=== PATIENT | male | born 1940 | race Caucasian/White ===

== ENCOUNTER 2017-10-12 23:52 | Inpatient (IN) | payer MEDICARE ==
[2017-10-13 00:46] VITALS: BP 128/75
[2017-10-13] MEDS ORDERED: Magnesium Hydroxide (MOM) 30 mL UDC PO PRN (01:11)
[2017-10-13] MEDS ORDERED: Maalox 30 mL Cup PO PRN (01:11)
[2017-10-13] MEDS ORDERED: Haloperidol Lactate 5 mg/mL 1mL Vial IM PRN (01:22)
--- NOTE | 2017-10-13 07:43 | Diagnostic Imaging Report ---
Portable chest x-ray HISTORY: Shortness of breath The heart is enlarged. Surgical suture material noted over the mid chest. Parenchymal density seen in the left perihilar region. Pneumonia cannot be excluded. Clinical correlation is needed. IMPRESSION: 1. Left perihilar density. Pneumonia cannot be excluded. Clinical correlation is needed 2. Cardiomegaly 3. Surgical changes
[2017-10-13 09:23] LABS: % BASOPHILS 1.1 % (0.0-2.0); % LYMPHOCYTES 8.6 % (20.0-50.0); % MONOCYTES 8.4 % (2.0-10.0); % NEUTROPHILS 79.9 % (40.0-80.0); BASOPHILE ABSOLUTE 0.1 Th/cumm (0-0.2); EOSINOPHILE ABSOLUTE 0.1 Th/cmm (0.1-0.4); HEMATOCRIT 46.4 % (41.0-60); HEMOGLOBIN 15.3 gm/dL (12-16); LYMPHOCYTE ABSOLUTE 0.6 Th/cmm (1.5-3.0); MEAN CELL VOLUME 90.9 fl (80-99); MEAN CORPUSCULAR HGB CONC 33.1 pg (28.0-36.0); MONOCYTE ABSOLUTE 0.6 Th/cmm (0.3-1.0); NEUTROPHILE ABSOLUTE 5.9 Th/cmm (1.8-8.0); PLATELET COUNT 235 Th/cmm (150-400); RED BLOOD COUNT 5.11 Mil/cmm (3.80-5.80); RED CELL DISTRIBUTION WIDTH 13.8 % (11.5-20.0); WHITE BLOOD COUNT 7.3 Th/cmm (4.8-10.8)
[2017-10-13] MEDS: Multivitamin Tab PO SCH (09:24)
[2017-10-13] MEDS: Aspirin 81mg Chewable Tab PO SCH (09:24)
[2017-10-13 09:27] LABS: ALB/GLOB RATIO 1.4 (1.0-1.8); ALBUMIN 3.3 gm/dL (4.2-5.5); ALKALINE PHOSPHATASE 55 U/L (34-104); ANION GAP 9.4 (7.0-16.0); BILIRUBIN,TOTAL 0.8 mg/dL (0.3-1.0); BUN - UREA NITROGEN 15 mg/dL (7-25); CALCIUM SERUM 8.8 mg/dL (8.6-10.3); CARBON DIOXIDE 25.9 mEq/L (21.0-31.0); CHLORIDE 107 mEq/L (98-107); CHOLESTEROL 160 mg/dL (<200); CREATININE - SERUM 0.9 mg/dL (0.7-1.3); GLUCOSE 100 mg/dL (70-105); HDL -HIGH DENSITY LIPOPROTEIN 39 mg/dL (23-92); POTASSIUM SERUM 4.3 mEq/L (3.5-5.1); SGOT 34 U/L (13-39); SGPT/ALT 14 U/L (7-52); SODIUM SERUM 138 mEq/L (136-145); TOTAL PROTEIN,SERUM 5.7 gm/dL (6.0-8.3); TRIGLYCERIDES 78 mg/dL (<150)
[2017-10-13 10:06] LABS: VALPROIC ACID 18.3 ug/mL (50.0-100.0)
[2017-10-13 18:30] LABS: A1C % 6.2 % (4.0-6.0)
--- NOTE | 2017-10-13 23:36 | History & Physical ---
ADMIT DATE: 10/13/2017 REASON FOR ADMISSION: Psychiatric disorders. ADMITTING PHYSICIAN: Dr. Lantigua. REASON FOR CONSULTATION: Medical management. HISTORY OF PRESENT ILLNESS: This is a 76-year-old male with underlying history of BPH with obstructive uropathy, requiring chronic indwelling Hogue catheter, chronic AFib, dementia, and mental disorder; was admitted for Geropsych Unit for underlying psychiatric illness by Dr. Lantigua. Dr. Lantigua requested medical H and P on this patient. During my evaluation, the patient was awake, communicated, denies any complaints. PAST MEDICAL HISTORY: BPH, chronic AFib, and dementia. PAST SURGICAL HISTORY: No significant past surgical history. SOCIAL HISTORY: prison resident. No reports alcohol, tobacco, or street drug use. CURRENT MEDICATIONS: On Xarelto, Flomax, started on Ambien, Seroquel, Ativan, Proscar, Depakote, aspirin, Maalox, and Tylenol. REVIEW OF SYSTEMS: As per HPI, 12-point system is negative. PHYSICAL EXAMINATION: VITAL SIGNS: Temperature 98.8, pulse 108, respirations 20, blood pressure ____, and 97% on room air. Pain 0/10. GENERAL APPEARANCE: The patient does not seem in distress. CARDIOVASCULAR: S1 and S2 normal. LUNGS: Clear to auscultation bilaterally. ABDOMEN: Soft. NEUROLOGIC: The patient is awake, follows commands, moves all extremities. Gross nonfocal exam EXTREMITIES: No edema noted. AVAILABLE LABORATORY DATA: ____. ASSESSMENT: 1. Chronic atrial fibrillation, stable. 2. Obstructive uropathy. 3. Benign prostatic hypertrophy. 4. Dementia. 5. ____. PLAN: Continue the patient's psych evaluation and management per psychiatric. Continue Xarelto. Continue Proscar. Continue Flomax. Fall precautions. Hogue care will be given. Psych evaluation and management per psychiatrist. The patient is medically stable. Thank you Dr. Lantigua for allowing me to participate in the care of this patient. JOB# [id number]
--- NOTE | 2017-10-14 02:21 | Psychiatric Evaluation ---
DATE OF SERVICE: INITIAL EVALUATION AND MENTAL STATUS EXAM THE PATIENT'S AGE: 76. SEX: Male. PHYSICIAN: Dr. Lantigua. CHIEF COMPLAINT: Increased agitation and confusion. HISTORY OF PRESENT ILLNESS: The patient is a 76-year-old male, who was admitted to the hospital after seen at [facility] Emergency Room because of increased aggression towards his . The patient is and living with his and has been increasingly confused and agitated. He has history of dementia. He was brought in to [facility] by ambulance after he had altered level of conscious and his was unable to care for him because of his aggressive behavior and his confusion. His said that he has been an aggressive and has been in irritable mood. In the Emergency Room at [facility], the patient was agitated and irritable. The patient was given Ativan and Haldol to calm him down. The patient is still having episodes of irritability and anger, but also he seems to be confused. PAST PSYCHIATRIC HISTORY: The patient has history of dementia and psychosis. PAST MEDICAL HISTORY: The patient has urinary retention and while in [facility], they inserted Hogue catheter, which has been bothering the patient. The patient also has diagnosis of acute encephalopathy. SOCIAL HISTORY: The patient is and lives with his . Agitated. Irritable mood. Forgetful. MENTAL STATUS EXAMINATION: Thought processes are disorganized. The patient denies have any hallucinations or delusions, but is actively responding and is agitated. The patient did not answer questions regarding suicide or homicide, but he was aggressive with his . The patient is alert, but seems to be disoriented to time, place, person and situation. Impaired immediate, recent and remote memories. Poor insight. Poor judgment. ASSESSMENT: PRIMARY DIAGNOSIS: Unspecified psychosis. SECONDARY DIAGNOSIS: Dementia, severe, with psychotic features and behavioral disturbances. AFTER DISCHARGE PLAN: Outpatient treatment and followup will continue as an outpatient and the patient will need placement in a retirement. CRITERIA FOR DISCHARGE: Better impulse control and stabilize psychotropic medications and establish outpatient treatment plans. [facility]# [id number]
[2017-10-14] MEDS: Aspirin 81mg Chewable Tab PO SCH (09:42)
[2017-10-14] MEDS: Multivitamin Tab PO SCH (09:43)
[2017-10-14 15:39] LABS: % EOSINOPHILS 1.2 % (0.0-5.0); % LYMPHOCYTES 4.4 % (20.0-50.0); % MONOCYTES 7.9 % (2.0-10.0); % NEUTROPHILS 86.5 % (40.0-80.0); EOSINOPHILE ABSOLUTE 0.2 Th/cmm (0.1-0.4); HEMATOCRIT 45.1 % (41.0-60); HEMOGLOBIN 15.3 gm/dL (12-16); LYMPHOCYTE ABSOLUTE 0.6 Th/cmm (1.5-3.0); MEAN CELL VOLUME 89.8 fl (80-99); MEAN CORPUSCULAR HEMOGLOBIN 30.6 pg (27.0-31.0); NEUTROPHILE ABSOLUTE 10.8 Th/cmm (1.8-8.0); PLATELET COUNT 239 Th/cmm (150-400); RED BLOOD COUNT 5.02 Mil/cmm (3.80-5.80); RED CELL DISTRIBUTION WIDTH 13.8 % (11.5-20.0); WHITE BLOOD COUNT 12.6 Th/cmm (4.8-10.8)
[2017-10-14 16:24] LABS: BAND NEUTROPHILE 6 % (0-10); EOSINOPHIL 1 % (0-5); LYMPHOCYTE 7 % (20-50); MONOCYTE 3 % (2-10); NEUTROPHILS 86 % (40-80)
--- NOTE | 2017-10-14 21:25 | General Progress Note ---
Subjective - Review of Systems Service Date: 10/14/17 Subjective: Patient seen and examined noted for have hematuria and clogged hodges issue Urology was contacted who ordered to re insert hodges and flush Objective - Results Result Diagrams: 10/14/17 15:34 10/13/17 08:55 Recent Labs: Laboratory Last Values WBC 12.6 Th/cmm (4.8-10.8) H 10/14/17 15:34 RBC 5.02 Mil/cmm (3.80-5.80) 10/14/17 15:34 Hgb 15.3 gm/dL (12-16) 10/14/17 15:34 Hct 45.1 % (41.0-60) 10/14/17 15:34 MCV 89.8 fl (80-99) 10/14/17 15:34 MCH 30.6 pg (27.0-31.0) 10/14/17 15:34 MCHC Differential 34.0 pg (28.0-36.0) 10/14/17 15:34 RDW 13.8 % (11.5-20.0) 10/14/17 15:34 Plt Count 239 Th/cmm (150-400) 10/14/17 15:34 MPV 8.0 fl 10/14/17 15:34 Neutrophils % 86.5 % (40.0-80.0) H 10/14/17 15:34 Band Neutrophils % 6 % (0-10) 10/14/17 15:34 Lymphocytes % 4.4 % (20.0-50.0) L 10/14/17 15:34 Monocytes % 7.9 % (2.0-10.0) 10/14/17 15:34 Eosinophils % 1.2 % (0.0-5.0) 10/14/17 15:34 Basophils % 0.0 % (0.0-2.0) 10/14/17 15:34 Neutrophils (Manual) 86 % (40-80) H 10/14/17 15:34 Lymphocytes 7 % (20-50) L 10/14/17 15:34 Monocytes 3 % (2-10) 10/14/17 15:34 Eosinophils 1 % (0-5) 10/14/17 15:34 Sodium 138 mEq/L (136-145) 10/13/17 08:55 Potassium 4.3 mEq/L (3.5-5.1) 10/13/17 08:55 Chloride 107 mEq/L (98-107) 10/13/17 08:55 Carbon Dioxide 25.9 mEq/L (21.0-31.0) 10/13/17 08:55 Anion Gap 9.4 (7.0-16.0) 10/13/17 08:55 BUN 15 mg/dL (7-25) 10/13/17 08:55 Creatinine 0.9 mg/dL (0.7-1.3) 10/13/17 08:55 Est GFR ( Amer) TNP 10/13/17 08:55 Est GFR (Non-Af Amer) TNP 10/13/17 08:55 BUN/Creatinine Ratio 16.7 10/13/17 08:55 Glucose 100 mg/dL (70-105) 10/13/17 08:55 Hemoglobin A1c % 6.2 % (4.0-6.0) H 10/13/17 08:55 Calcium 8.8 mg/dL (8.6-10.3) 10/13/17 08:55 Total Bilirubin 0.8 mg/dL (0.3-1.0) 10/13/17 08:55 AST 34 U/L (13-39) 10/13/17 08:55 ALT 14 U/L (7-52) 10/13/17 08:55 Alkaline Phosphatase 55 U/L (34-104) 10/13/17 08:55 Total Protein 5.7 gm/dL (6.0-8.3) L 10/13/17 08:55 Albumin 3.3 gm/dL (4.2-5.5) L 10/13/17 08:55 Globulin 2.4 gm/dL 10/13/17 08:55 Albumin/Globulin Ratio 1.4 (1.0-1.8) 10/13/17 08:55 Triglycerides 78 mg/dL (<150) 10/13/17 08:55 Cholesterol 160 mg/dL (<200) 10/13/17 08:55 LDL Cholesterol Direct 115 mg/dL (75-193) 10/13/17 08:55 HDL Cholesterol 39 mg/dL (23-92) 10/13/17 08:55 TSH 3.65 uIU/ml (0.34-5.60) 10/13/17 08:55 Valproic Acid 18.3 ug/mL (50.0-100.0) L 10/13/17 08:55 - Physical Exam Vitals and I&O: Vital Signs Temp 97.2 F 10/14/17 17:18 Pulse 90 10/14/17 17:18 Resp 18 10/14/17 17:18 BP 124/54 10/14/17 17:18 Pulse Ox 98 10/14/17 17:18 Intake & Output 10/14/17 10/14/17 10/15/17 06:59 18:59 06:59 Intake Total 120 Balance 120 Intake: Oral 120 Other: # Voids 1 # Bowel Movements 0 Cardiovascular: Regular rate Lungs: Clear to auscultation Abdomen: Soft, no Tender Assessment/Plan - Assessment Assessment: Obstructive uropathy Hematuria Complicated UTi Chronic afib Dementia Mental health disorder - Plan Plan: Patient will be transfered to [facility] Floor IV antibiotics will be started Hodges irrigation if clots Urology consulted Willie was held Plan of care discussed with the nursing staff
== END 2017-10-14 17:39 | DRG 885 ==
LOC: GERO 23:52
PROVIDERS: ADMIT Psychiatry & Neurology Psychiatry; ATTEND Psychiatry & Neurology Psychiatry
DX: F29 Unspecified psychosis not due to a substance or known physiological condition (principal); F03.91 Unspecified dementia, unspecified severity, with behavioral disturbance; N13.8 Other obstructive and reflux uropathy; N39.0 Urinary tract infection, site not specified; I48.2 Chronic atrial fibrillation; N40.1 Benign prostatic hyperplasia with lower urinary tract symptoms; R31.9 Hematuria, unspecified
CPT/HCPCS: 36415-UA; 71045-TC; 80053-TC; 80061-TC; 80164-TC; 83036-90; 84443-TC; 85007-TC; 85025-TC; 93005; Z7610

== ENCOUNTER 2017-10-14 17:47 | Inpatient (IN) | payer MEDICARE ==
[2017-10-14] MEDS ORDERED: Haloperidol Lactate 5 mg/mL 1mL Vial IM PRN (18:44)
[2017-10-14] MEDS ORDERED: D5-0.45NS 1,000 ML IV SCH (21:30)
[2017-10-15] MEDS: cefTRIAXone 1 GM in Sodium Chloride 0.9% 50 ML IV SCH ×2 (01:22→22:02)
[2017-10-15 02:51] VITALS: BP 103/46
[2017-10-15 06:33] LABS: HEMATOCRIT 43.1 % (41.0-60); HEMOGLOBIN 14.5 gm/dL (12-16); MEAN CELL VOLUME 90.6 fl (80-99); MEAN CORPUSCULAR HEMOGLOBIN 30.6 pg (27.0-31.0); MEAN CORPUSCULAR HGB CONC 33.7 pg (28.0-36.0); MEAN PLATELET VOLUME 8.6 fl; PLATELET COUNT 176 Th/cmm (150-400); RED BLOOD COUNT 4.76 Mil/cmm (3.80-5.80); RED CELL DISTRIBUTION WIDTH 13.7 % (11.5-20.0); WHITE BLOOD COUNT 14.7 Th/cmm (4.8-10.8)
[2017-10-15 06:59] LABS: ANION GAP 12.1 (7.0-16.0); BUN - UREA NITROGEN 20 mg/dL (7-25); CARBON DIOXIDE 23.8 mEq/L (21.0-31.0); CHLORIDE 107 mEq/L (98-107); CREATININE - SERUM 0.9 mg/dL (0.7-1.3); GLUCOSE 72 mg/dL (70-105); POTASSIUM SERUM 3.9 mEq/L (3.5-5.1); SODIUM SERUM 139 mEq/L (136-145)
[2017-10-15] MEDS: Multivitamin Tab PO SCH (08:11)
[2017-10-15 08:23] LABS: BAND NEUTROPHILE 6 % (0-10); BASOPHIL 1 % (0-3); EOSINOPHIL 1 % (0-5); LYMPHOCYTE 2 % (20-50); MONOCYTE 8 % (2-10); NEUTROPHILS 82 % (40-80); PLATELET ESTIMATE ADEQUATE (NORMAL)
[2017-10-15] MEDS ORDERED: fentaNYL Citrate 100 mcg/2mL Vial ONE (10:53)
[2017-10-15] MEDS ORDERED: Propofol **SURGERY USE ONLY** 20 ML IV ONE (10:57)
--- NOTE | 2017-10-15 15:13 | Consultation ---
DATE OF CONSULTATION: 10/15/2017 REASON FOR CONSULTATION: Gross hematuria. HISTORY OF PRESENT ILLNESS: The patient is a 76-year-old resident of the psychiatric unit as of yesterday when the Hogue catheter started bleeding after nurses attempted to change it the previous night. Apparently, the patient has BPH and is catheter dependent for a long time, which gets changed periodically. He also gets anticoagulants in the form of Xarelto for his atrial fibrillation. The bleeding from the Hogue resulted in no urine output for several hours after which it was changed and 700 mL of bloody urine was drained. Subsequently, it was functioning, but not clearing up and bloody urine continued with occasional clots. Cystoscopy was therefore recommended. No history of previous urologic surgeries known to us. PAST MEDICAL HISTORY: Positive for dementia and psychosis for which he was admitted initially. History of atrial fibrillation requiring anticoagulation, history of urinary retention and BPH requiring a chronic Hogue. No diabetes or hypertension. HOME MEDICATIONS: Before admission included lorazepam, aspirin, Depakote, finasteride, haloperidol, Seroquel, Xarelto, Flomax, trazodone, zolpidem. ALLERGIES: None. REVIEW OF SYSTEMS: No fever or weight loss reported. Change in mental status, ongoing. No chest pain, coughing or shortness of breath in the recent few days. No abdominal pain, vomiting or diarrhea. The patient keeps pulling on the Hogue catheter according to the nurses, which also results in bleeding in the urine. No headache or seizures. PHYSICAL EXAMINATION: VITAL SIGNS: On exam, temperature 99.2, heart rate 84, blood pressure 111/60. HEAD AND NECK: Normocephalic. Trachea central. Pupils equal and reactive. No jaundice. Thyroid and lymph nodes not palpable. Carotid bruit absent. Temperature last evening was 101, which is a T-max since admission to the Med-Surg floor. CHEST: Symmetrical. LUNGS: Clear. No rales or rhonchi. HEART: Sounds normal, irregular rhythm, no murmur. ABDOMEN: Soft, nontender, no organomegaly, mass, or hernia. Bladder slightly tender to palpation. Hogue catheter in place. Urine bloody. No scrotal masses. RECTAL: Deferred, will perform later. EXTREMITIES: No edema or lymphadenopathy. NEUROLOGIC: Nonfocal. Moves all 4 limbs. Higher functions difficult to evaluate due to altered level of consciousness. LABORATORY DATA: White count 14.7, hemoglobin 14.5, platelets 176. Sodium and potassium are normal. BUN 20, creatinine 0.9. Chest x-ray showed cardiomegaly and left perihilar density and some kind of surgical changes. Apparently, the patient has had thoracic surgery before. Psychological evaluation consistent with psychosis and dementia. IMPRESSION: 1. Gross hematuria secondary to benign prostatic hypertrophy, chronic Hogue, Hogue trauma, and anticoagulants. Recommend cystoscopy, clot evacuation, control of bleeding. More definitive long-term treatment would be TURP if indicated and if the patient is medically stable. Family understands the procedure, risks and options and is willing to proceed. 2. Psychosis, dementia, chronic. 3. Atrial fibrillation, on anticoagulation. This may have to be interrupted for a few days and then resume slowly and carefully. [facility]# [id number]
[2017-10-15] MEDS ORDERED: Acetaminophen 500 MG TAB ONE (18:37)
[2017-10-15] MEDS ORDERED: Metoprolol tartrate 1 mg/ml 5mL Amp IV ONE (19:21)
--- NOTE | 2017-10-15 22:59 | Operative Report ---
DATE OF SURGERY: 10/15/2017 PREOPERATIVE DIAGNOSIS: Gross hematuria with clots. POSTOPERATIVE DIAGNOSES: Gross hematuria with clots and BPH. SURGEON: Nba Rueda M.D. NAME OF PROCEDURE: Cystoscopy, clot evacuation and fulguration of bleeders under general anesthesia. INDICATION: The patient is a 76-year-old with a chronic Hogue and BPH as well as anticoagulants in the form of aspirin and Xarelto, started bleeding, not controlled with Hogue catheter and irrigation. Additionally, he was also pulling on the catheter. Cystoscopy was therefore recommended. FINDINGS: Cystoscopy revealed normal open urethra. Prostatic urethra is completely obstructed with large lateral lobes. It is hemorrhagic and was the site of bleeding. The bladder is heavily trabeculated and had several clots that were evacuated. No major abnormalities were noted in the bladder besides this. Bleeding points were fulgurated using a Bugbee electrode and a 3-way Hogue was introduced with no complications. BLOOD LOSS: Less than 50 mL. DESCRIPTION OF PROCEDURE: The patient was brought to the operating room, prepped and draped in the dorsal lithotomy position after general anesthesia was induced. The meatus was dilated and a cystoscope introduced under vision and cystoscopy carried out with the 30 and 70 degree lenses as mentioned and the clots were evacuated with a suction syringe. Bleeding points were noted on the right lateral lobe of the prostate, which were fulgurated with a Bugbee electrode and after this was satisfactorily done, a 20-[place] 3-way Hogue was introduced and irrigated with clear returns. The patient was returned to recovery room in stable condition without any complications. JOB# [id number]
--- NOTE | 2017-10-16 01:23 | History & Physical ---
ADMIT DATE: 10/14/2017 CHIEF COMPLAINT: Acute urinary retention and hematuria. HISTORY OF PRESENT ILLNESS: The patient is a 76-year-old male with an underlying history of obstructive uropathy requiring chronic indwelling Hogue, mental disorders, dementia, and chronic AFib, who was at the Geropsych Unit and was transferred to the medical floor for evaluation of the urinary retention associated with hematuria. The patient is status post cystoscopy this morning. Has a 3-way Hogue catheter in. No history of good urine outflow. No other concerns reported. The patient still seems very confused. PAST MEDICAL HISTORY: Chronic AFib, obstructive uropathy, and BPH. PAST SURGICAL HISTORY: None. FAMILY HISTORY: Noncontributory. SOCIAL HISTORY: [facility] resident. No reported alcohol or tobacco use. CURRENT MEDICATIONS: Per medication reconciliation reviewed. ALLERGIES: No known drug allergies. REVIEW OF SYSTEMS: No fever, no chills, no diarrhea, no vomiting, no abdominal pain, no chest pain, no trouble breathing. No hematuria, no hematemesis, no melena, or other complaints. PHYSICAL EXAMINATION: VITAL SIGNS: Temperature 97.7, pulse 83, respirations 18, blood pressure 120/60, oxygen saturation 97% percent on room air. HEART: S1, S2 normal. LUNGS: Clear. ABDOMEN: Soft. NEUROLOGIC: The patient is alert, confused. Moves all extremities, no edema. AVAILABLE LABORATORY DATA: As noted. ASSESSMENT: 1. Acute retention requiring indwelling Hogue. 2. Obstructive uropathy. 3. Hematuria. 4. Urinary tract infection. 5. Chronic atrial fibrillation. 6. Dementia. 7. Psych disorder. PLAN: Continue the patient on IV Rocephin. Discontinue IV fluids. Diet will be started per Urology's recommendation, and cystoscopy. We will keep the patient off the Xarelto, and monitor for hematuria. ID is on board. Follow up the urine cultures. The patient continues with psychotropic medication. Psych is on board. Discussed the patient's condition and plan with nursing staff. JOB# [id number]
[2017-10-16] MEDS: Acetaminophen 500 MG TAB PO PRN (03:15)
[2017-10-16 07:54] LABS: HEMATOCRIT 41.3 % (41.0-60); HEMOGLOBIN 14.2 gm/dL (12-16); MEAN CELL VOLUME 90.4 fl (80-99); MEAN CORPUSCULAR HGB CONC 34.3 pg (28.0-36.0); MEAN PLATELET VOLUME 8.4 fl; PLATELET COUNT 197 Th/cmm (150-400); RED BLOOD COUNT 4.57 Mil/cmm (3.80-5.80); RED CELL DISTRIBUTION WIDTH 13.6 % (11.5-20.0); WHITE BLOOD COUNT 7.5 Th/cmm (4.8-10.8)
[2017-10-16 08:26] LABS: ALB/GLOB RATIO 1.2 (1.0-1.8); ALBUMIN 3.1 gm/dL (4.2-5.5); ALKALINE PHOSPHATASE 47 U/L (34-104); BILIRUBIN,TOTAL 0.5 mg/dL (0.3-1.0); BUN - UREA NITROGEN 14 mg/dL (7-25); CALCIUM SERUM 8.6 mg/dL (8.6-10.3); CARBON DIOXIDE 26.7 mEq/L (21.0-31.0); CHLORIDE 105 mEq/L (98-107); CREATININE - SERUM 0.9 mg/dL (0.7-1.3); GLUCOSE 97 mg/dL (70-105); POTASSIUM SERUM 3.7 mEq/L (3.5-5.1); SGOT 43 U/L (13-39); SGPT/ALT 18 U/L (7-52); SODIUM SERUM 137 mEq/L (136-145); TOTAL PROTEIN,SERUM 5.6 gm/dL (6.0-8.3)
[2017-10-16] MEDS: Multivitamin Tab PO SCH (08:26)
[2017-10-16 08:28] LABS: INR 1.11 (0.5-1.4); PROTHROMBIN TIME (TEST) 11.4 SECONDS (9.5-11.5)
[2017-10-16 08:29] LABS: BAND NEUTROPHILE 1 % (0-10); BASOPHIL 0 % (0-3); EOSINOPHIL 0 % (0-5); LYMPHOCYTE 7 % (20-50); MONOCYTE 10 % (2-10); NEUTROPHILS 82 % (40-80)
--- NOTE | 2017-10-16 10:02 | Progress Notes ---
DATE: 10/16/2017 SUBJECTIVE: Chart reviewed and the patient interviewed. Also discussed the patient's condition with the staff and reviewed records and labs. The patient is extremely agitated and in irritable mood. The patient also was restless and he according to staff did not sleep most of last night. The patient also is having difficulty following staff directions and he is pulling IVs and trying to get off the bed. Also, staff has been concerned about his agitation and his trial to get off bed and exposing himself to multiple dangerous situation. Otherwise, the patient is still taking his medications. ASSESSMENT: The patient is still agitated and is still in irritable mood. TREATMENT PLAN: We will monitor the patient's behavior and condition closely. Also, we will increase Ativan to 1 mg every 4 hours on a p.r.n. basis. Unfortunately, the patient does not have any IVs. Also, we will increase Haldol p.r.n. to 5 mg every 4 hours on a p.r.n. basis. We will monitor behavior and follow up closely. [facility]# [id number]
[2017-10-16] MEDS: Diltiazem 30 mg Tab PO SCH ×2 (12:24→17:41)
--- NOTE | 2017-10-16 12:50 | Consultation ---
DATE OF CONSULTATION: 10/16/2017 INFECTIOUS DISEASE CONSULTATION REFERRING PHYSICIAN: Dr. Emil Figueroa. REASON FOR CONSULTATION: UTI and leukocytosis. HISTORY OF PRESENT ILLNESS: The patient is a 76-year-old male with past medical history of BPH with obstructive uropathy, chronic indwelling Hogue catheter, chronic AFib, dementia, mental disorder, admitted to Geropsych Unit for psychotic episode. On initial evaluation, he was afebrile and WBC count was 12,000. He developed gross hematuria with no urine output for a few hours. The Hogue catheter was changed and patient started draining urine, which was blood stained. It was also draining occasional clots. Cystoscopy was performed yesterday. Antibiotic farfan, the patient was started on Rocephin as patient had leukocytosis of 14,000. ID consult was called for further antibiotic management. PAST MEDICAL HISTORY: Includes positive for dementia, psychosis, atrial fibrillation on anticoagulation, Xarelto, BPH, history of urinary retention, chronic indwelling Hogue. MEDICATIONS: As per medication reconciliation sheet. Antibiotic farfan, the patient is receiving Rocephin. ALLERGIES: NKDA. REVIEW OF SYSTEMS: The patient is a poor historian, however. GENERAL: The patient has no fever, no chills. HEENT: No diplopia, no photophobia, no sore throat. RESPIRATORY: No cough, no shortness of breath. CVS: No chest pain or palpitation. Although patient's heart rate went up to 150s, so the patient was transferred to the ICU. library sales consultant is following. GASTROINTESTINAL: No nausea, no vomiting, no diarrhea, no constipation, no abdominal pain. GENITOURINARY: No dysuria. The patient had aggressive nature, which has improved. The patient has obstructive uropathy and has chronic indwelling Hogue catheter. CENTRAL NERVOUS SYSTEM: No headache, no dizziness, no focal weakness. PHYSICAL EXAMINATION: VITAL SIGNS: Shows temperature is 97.7 degrees Fahrenheit, T-max is 101.8 degrees Fahrenheit, pulse is 87, respirations 24, blood pressure 99/50. GENERAL: The patient is comfortable lying in the bed, not in acute distress. HEENT: Head is normocephalic, atraumatic. Oral cavity moist, pink tongue. Eyes: No pallor, no icterus. Pupils PERRLA, EOMI. NECK: Supple, no JVD, no carotid bruit. Trachea in midline. CHEST: Bilateral breath sounds. No crackles or wheezing. CARDIOVASCULAR: S1, S2 within normal limits. Irregular rhythm. No murmur, no gallop. ABDOMEN: Soft, nontender, nondistended. Bowel sounds present. EXTREMITIES: No cyanosis, no clubbing, no edema. NEUROLOGICAL: Alert, awake, oriented x 3. LABORATORY DATA: Current lab shows WBC count is 7500, hemoglobin 14.2, hematocrit 41.3, platelets are 197,000, neutrophil is 82%. Sodium is 137, potassium 3.7, chloride 105, bicarbonate is 26, BUN is 14, creatinine 0.9, glucose is 97. AST is 43, ALT is 18, alkaline phosphatase 47, MRSA screen was negative. IMPRESSION: 1. Leukocytosis and fever may be due to sepsis versus systemic inflammatory response syndrome due to hematuria. 2. Urinary tract infection versus hematuria secondary to coagulopathy. 3. History of obstructive uropathy. 4. Chronic atrial fibrillation. 5. Dementia. 6. Psych disorder. RECOMMENDATIONS: Continue Rocephin IV. Depending on the urine culture report, will define final antibiotic therapy. Thank you, Dr. Figueroa, for involving me in taking care of this patient. JOB# [id number] [facility]
[2017-10-16] MEDS: cefTRIAXone 1 GM in Sodium Chloride 0.9% 50 ML IV SCH (20:31)
--- NOTE | 2017-10-16 20:40 | Progress Notes ---
DATE: UROLOGY PROGRESS NOTE SUBJECTIVE: The patient was transferred to the ICU last night because of tachycardia and has settled down after Cardizem was given every 6 hours. Urine apparently was red last night, but is now clear and he had low-grade temperature once last night as well. I tried to speak with his and left a message for her since she was not available to indicate that a TURP may be an option to get rid of the Hogue catheter over the long-term. PHYSICAL EXAMINATION: VITAL SIGNS: On exam, heart rate 66, blood pressure 91/52, saturating 99%, and temperature 97.9. ABDOMEN: Soft and nontender. Bladder nondistended. Hogue catheter, no blood. EXTREMITIES: No edema. LABORATORY DATA: Hemoglobin 14.2 and white count 7.5. BUN 14 and creatinine 0.9. IMPRESSION: 1. Gross hematuria, now improved after fulguration. 2. Benign prostatic hypertrophy and obstructive uropathy, on chronic Hogue. Consider TURP if the family wants to and if medically cleared. 3. Chronic atrial fibrillation, Xarelto was resumed today with the risk of hematuria coming back; however, this seems to be necessary to prevent embolism. 4. History of significant psychosis and dementia. No change, but this does require some restraints so that he does not pull on the catheter. JOB# [id number]
--- NOTE | 2017-10-16 20:43 | General Progress Note ---
Subjective - Review of Systems Service Date: 10/16/17 Subjective: Patient was seen and examined in ICU . Doing better HR stable patient seems very confused sitter was at the bedside hematuria better Objective - Results Result Diagrams: 10/16/17 07:40 10/16/17 07:40 Recent Labs: Laboratory Last Values WBC 7.5 Th/cmm (4.8-10.8) 10/16/17 07:40 RBC 4.57 Mil/cmm (3.80-5.80) 10/16/17 07:40 Hgb 14.2 gm/dL (12-16) 10/16/17 07:40 Hct 41.3 % (41.0-60) 10/16/17 07:40 MCV 90.4 fl (80-99) 10/16/17 07:40 MCH 31.0 pg (27.0-31.0) 10/16/17 07:40 MCHC Differential 34.3 pg (28.0-36.0) 10/16/17 07:40 RDW 13.6 % (11.5-20.0) 10/16/17 07:40 Plt Count 197 Th/cmm (150-400) 10/16/17 07:40 MPV 8.4 fl 10/16/17 07:40 Add Manual Diff YES 10/16/17 07:40 Band Neutrophils % 1 % (0-10) 10/16/17 07:40 Neutrophils (Manual) 82 % (40-80) H 10/16/17 07:40 Lymphocytes 7 % (20-50) L 10/16/17 07:40 Monocytes 10 % (2-10) 10/16/17 07:40 Eosinophils 0 % (0-5) 10/16/17 07:40 Basophils 0 % (0-3) 10/16/17 07:40 Platelet Estimate ADEQUATE (NORMAL) 10/15/17 04:55 PT 11.4 SECONDS (9.5-11.5) 10/16/17 07:40 INR 1.11 (0.5-1.4) 10/16/17 07:40 PTT (Actin FS) 29.4 SECONDS (26.0-38.0) 10/16/17 07:40 Sodium 137 mEq/L (136-145) 10/16/17 07:40 Potassium 3.7 mEq/L (3.5-5.1) 10/16/17 07:40 Chloride 105 mEq/L (98-107) 10/16/17 07:40 Carbon Dioxide 26.7 mEq/L (21.0-31.0) 10/16/17 07:40 Anion Gap 9.0 (7.0-16.0) 10/16/17 07:40 BUN 14 mg/dL (7-25) 10/16/17 07:40 Creatinine 0.9 mg/dL (0.7-1.3) 10/16/17 07:40 Est GFR ( Amer) TNP 10/16/17 07:40 Est GFR (Non-Af Amer) TNP 10/16/17 07:40 BUN/Creatinine Ratio 15.6 10/16/17 07:40 Glucose 97 mg/dL (70-105) 10/16/17 07:40 POC Glucose 81 MG/DL (70 - 105) 10/15/17 10:36 Calcium 8.6 mg/dL (8.6-10.3) 10/16/17 07:40 Total Bilirubin 0.5 mg/dL (0.3-1.0) 10/16/17 07:40 AST 43 U/L (13-39) H 10/16/17 07:40 ALT 18 U/L (7-52) 10/16/17 07:40 Alkaline Phosphatase 47 U/L (34-104) 10/16/17 07:40 Total Protein 5.6 gm/dL (6.0-8.3) L 10/16/17 07:40 Albumin 3.1 gm/dL (4.2-5.5) L 10/16/17 07:40 Globulin 2.5 gm/dL 10/16/17 07:40 Albumin/Globulin Ratio 1.2 (1.0-1.8) 10/16/17 07:40 - Physical Exam Vitals and I&O: Vital Signs Temp 98.1 F 10/16/17 16:00 Pulse 96 10/16/17 17:41 Resp 24 10/16/17 16:00 BP 90/66 10/16/17 16:00 Pulse Ox 97 10/16/17 16:00 Intake & Output 10/16/17 10/16/17 10/17/17 06:59 18:59 06:59 Intake Total 50 950 Output Total 1170 Balance 50 -220 Weight (lbs) 99.337 kg Intake: Intake, IV Amount 50 cefTRIAXone 1 gm In 50 Sodium Chloride 0.9% 50 ml @ 100 mls/hr IV HS [facility] Rx#:[id number] Oral 950 Output: Urine 1170 Other: # Bowel Movements 1 Weight Source Bedscale Active Medications: Current Medications Acetaminophen (Tylenol Extra Strength) 500 mg PO Q4H PRN PRN Reason: Fever > 101 Stop: 12/14/17 18:29 Last Admin: 10/16/17 03:15 Dose: 500 mg Diltiazem HCl (Cardizem) 60 mg PO Q6HR [facility] Stop: 12/15/17 11:59 Last Admin: 10/16/17 17:41 Dose: 60 mg Divalproex Sodium (Depakote Dr) 125 mg PO BID [facility]; Protocol Stop: 12/14/17 08:59 Last Admin: 10/16/17 17:42 Dose: 125 mg Haloperidol Lactate (Haldol) 5 mg IM Q4H PRN; Protocol PRN Reason: Agitation Stop: 12/13/17 18:43 Ceftriaxone Sodium 1 gm/ (Sodium Chloride) 50 mls @ 100 mls/hr IV [facility] Stop: 12/13/17 20:59 Last Admin: 10/16/17 20:31 Dose: 100 mls/hr Lorazepam (Ativan) 1 mg PO Q4HR PRN; Protocol PRN Reason: Agitation Stop: 12/13/17 18:34 Last Admin: 10/16/17 20:24 Dose: 1 mg Multivitamins/Vitamin C (Theragran) 1 tab PO DAILY [facility] Stop: 12/14/17 08:59 Last Admin: 10/16/17 08:26 Dose: 1 tab Oxybutynin Chloride (Ditropan) 5 mg PO BID [facility] Stop: 10/17/17 16:59 Last Admin: 10/16/17 17:47 Dose: 5 mg Quetiapine Fumarate (Seroquel) 50 mg PO BID [facility]; Protocol Stop: 12/14/17 08:59 Last Admin: 10/16/17 17:41 Dose: 50 mg Quetiapine Fumarate (Seroquel) 50 mg PO HS [facility]; Protocol Stop: 12/15/17 20:59 Last Admin: 10/16/17 20:24 Dose: 50 mg Rivaroxaban (Xarelto) 10 mg PO DAILY [facility] Stop: 12/14/17 08:59 Last Admin: 10/16/17 08:26 Dose: 10 mg Tamsulosin HCl (Flomax) 0.4 mg PO DAILY [facility] Stop: 12/14/17 08:59 Last Admin: 10/16/17 08:26 Dose: 0.4 mg Trazodone HCl (Desyrel) 50 mg PO HS [facility]; Protocol Stop: 12/13/17 20:59 Last Admin: 10/16/17 20:24 Dose: 50 mg Zolpidem Tartrate (Ambien) 5 mg PO HS PRN PRN Reason: Insomnia Stop: 12/13/17 18:43 Last Admin: 10/16/17 03:15 Dose: 5 mg Cardiovascular: Regular rate Lungs: Clear to auscultation - Procedures Procedures: Procedures Procedure Code Date CONTROL BLEEDING IN GENITOURINARY TRACT, ENDO [id number] 10/14/17 Assessment/Plan - Assessment Assessment: Complicated UTI Hematuria BPH Afib with RVR Dementia Mental health disorder - Plan Plan: HR better Cardiezem IV Rocephine Urine cx so far no growth ID Cardio and Psych on board TELEBED transfer Plan of care discussed with nursing staff
[2017-10-16] MEDS: Haloperidol Lactate 5 mg/mL 1mL Vial IM PRN (21:06)
--- NOTE | 2017-10-16 23:06 | Discharge Summary ---
DATE OF DISCHARGE: 10/14/2017 AGE: 76. SEX: Male. PHYSICIAN: Dr. Lantigua. FINAL DIAGNOSIS: PRIMARY DIAGNOSIS: Unspecified psychosis. REASON FOR HOSPITALIZATION: The patient was admitted to the hospital because of increased agitation and irritability and the patient also was confused. HOSPITAL COURSE: The patient continued to be agitated and confused. While the patient in the hospital, he was dehydrated and the patient was transferred to Med/Surg unit. The patient had no major side effects of the medicine which was Seroquel. AFTER DISCHARGE PLANS: The patient discharged from the hospital and discharged to unit with plan to follow him up there. EXPECTED OUTCOME AFTER DISCHARGE: Depends on hospital course and Med/Surg unit. JOB# [id number]
--- NOTE | 2017-10-16 23:52 | Consultation ---
DATE OF CONSULTATION: 10/15/[address] Henry Stein. HISTORY OF PRESENT ILLNESS: This is a 76-year-old male patient who had an indwelling Hogue catheter with urinary tract infection. Following this, the patient developed hematuria. At this time, the patient had cystoscopy and the patient developed atrial fibrillation with uncontrolled ventricular response. The patient was admitted to ICU and Cardiology consult was requested. The patient is a poor historian at this time. PAST MEDICAL HISTORY: Atrial fibrillation, obstructive uropathy, Hogue catheter, urinary tract infection, and BPH. FAMILY HISTORY: Unremarkable. SOCIAL HISTORY: No history of smoking, alcohol abuse. ALLERGIES: No known allergies. PHYSICAL EXAMINATION: VITAL SIGNS: Blood pressure 120/80, pulse 150 and irregular, and respirations 28. HEAD: Normocephalic. No lumps or bumps. EYES: Pupils equal, reactive to light. Fundi show AV nicking, sclerae white, conjunctivae pink. NECK: Carotid 2+. Normal upstroke. JVD flat. Thyroid not palpable. Lymph nodes not palpable. CHEST: Shows increased AP diameter. No kyphosis, scoliosis. LUNGS: Bilateral bronchovesicular breath sounds. HEART: PMI fifth intercostal space with lateral to midclavicular line. S1 irregular. S2, S3, S4, soft systolic murmur. ABDOMEN: Soft. Liver, spleen not palpable. No organomegaly. Bowel sounds active. NEUROLOGIC: Unremarkable. EXTREMITIES: Peripheral pulses 2+. No pedal edema. CLINICAL IMPRESSION: Atrial fibrillation with rapid ventricular response, obstructive uropathy with Hogue catheter, urinary tract infection, hematuria, dementia, and psychotic disorder. PLAN: The patient to continue present care. We will anticoagulate the patient since hematuria has resolved and control the heart rate. Also get an echocardiogram. JOB# [id number]
[2017-10-17] MEDS: Diltiazem 30 mg Tab PO SCH ×5 (00:09→23:39)
[2017-10-17 05:18] LABS: ANION GAP 8.6 (7.0-16.0); BUN - UREA NITROGEN 15 mg/dL (7-25); CALCIUM SERUM 8.6 mg/dL (8.6-10.3); CARBON DIOXIDE 28.4 mEq/L (21.0-31.0); CHLORIDE 104 mEq/L (98-107); GLUCOSE 100 mg/dL (70-105); SODIUM SERUM 137 mEq/L (136-145)
[2017-10-17] MEDS: Multivitamin Tab PO SCH (08:12)
--- NOTE | 2017-10-17 10:24 | Progress Notes ---
DATE: 10/15/2017 SUBJECTIVE: Chart reviewed and the patient interviewed. Also discussed the patient's condition with the staff and reviewed records and labs. The patient was transferred from [facility] Unit to [facility] unit because of dehydration and drop in blood pressure. The patient is still agitated and restless. Also, is still having difficulty following directions and is confused. Otherwise, the patient is taking Ativan p.r.n. and still have a lot of agitation and trying to pull tubes and IVs at times. ASSESSMENT: The patient is still agitated. TREATMENT PLAN: We will continue to monitor behavior and we will continue to monitor his agitation closely. JOB# [id number]
--- NOTE | 2017-10-17 10:54 | Infectious Disease Prog Note ---
Infectious Disease Subjective - Review of Systems Service Date: 10/17/17 Subjective: There is no fever. Infectious Disease Objective - Results Result Diagrams: 10/16/17 07:40 10/17/17 04:45 Recent Labs: Laboratory Last Values WBC 7.5 Th/cmm (4.8-10.8) 10/16/17 07:40 RBC 4.57 Mil/cmm (3.80-5.80) 10/16/17 07:40 Hgb 14.2 gm/dL (12-16) 10/16/17 07:40 Hct 41.3 % (41.0-60) 10/16/17 07:40 MCV 90.4 fl (80-99) 10/16/17 07:40 MCH 31.0 pg (27.0-31.0) 10/16/17 07:40 MCHC Differential 34.3 pg (28.0-36.0) 10/16/17 07:40 RDW 13.6 % (11.5-20.0) 10/16/17 07:40 Plt Count 197 Th/cmm (150-400) 10/16/17 07:40 MPV 8.4 fl 10/16/17 07:40 Add Manual Diff YES 10/16/17 07:40 Band Neutrophils % 1 % (0-10) 10/16/17 07:40 Neutrophils (Manual) 82 % (40-80) H 10/16/17 07:40 Lymphocytes 7 % (20-50) L 10/16/17 07:40 Monocytes 10 % (2-10) 10/16/17 07:40 Eosinophils 0 % (0-5) 10/16/17 07:40 Basophils 0 % (0-3) 10/16/17 07:40 Platelet Estimate ADEQUATE (NORMAL) 10/15/17 04:55 PT 11.4 SECONDS (9.5-11.5) 10/16/17 07:40 INR 1.11 (0.5-1.4) 10/16/17 07:40 PTT (Actin FS) 29.4 SECONDS (26.0-38.0) 10/16/17 07:40 Sodium 137 mEq/L (136-145) 10/17/17 04:45 Potassium 4.0 mEq/L (3.5-5.1) 10/17/17 04:45 Chloride 104 mEq/L (98-107) 10/17/17 04:45 Carbon Dioxide 28.4 mEq/L (21.0-31.0) 10/17/17 04:45 Anion Gap 8.6 (7.0-16.0) 10/17/17 04:45 BUN 15 mg/dL (7-25) 10/17/17 04:45 Creatinine 1.0 mg/dL (0.7-1.3) 10/17/17 04:45 Est GFR ( Amer) TNP 10/17/17 04:45 Est GFR (Non-Af Amer) TNP 10/17/17 04:45 BUN/Creatinine Ratio 15.0 10/17/17 04:45 Glucose 100 mg/dL (70-105) 10/17/17 04:45 POC Glucose 81 MG/DL (70 - 105) 10/15/17 10:36 Calcium 8.6 mg/dL (8.6-10.3) 10/17/17 04:45 Total Bilirubin 0.5 mg/dL (0.3-1.0) 10/16/17 07:40 AST 43 U/L (13-39) H 10/16/17 07:40 ALT 18 U/L (7-52) 10/16/17 07:40 Alkaline Phosphatase 47 U/L (34-104) 10/16/17 07:40 B-Natriuretic Peptide 219.0 pg/mL (5.0-100.0) H 10/17/17 04:45 Total Protein 5.6 gm/dL (6.0-8.3) L 10/16/17 07:40 Albumin 3.1 gm/dL (4.2-5.5) L 10/16/17 07:40 Globulin 2.5 gm/dL 10/16/17 07:40 Albumin/Globulin Ratio 1.2 (1.0-1.8) 10/16/17 07:40 - Physical Exam Vitals and I&O: Vital Signs Temp 98.7 F 10/17/17 08:00 Pulse 98 10/17/17 08:00 Resp 24 10/17/17 08:00 BP 105/53 10/17/17 08:00 Pulse Ox 96 10/17/17 08:00 Intake & Output 10/16/17 10/17/17 10/17/17 18:59 06:59 18:59 Intake Total 950 530 Output Total 1170 650 Balance -220 -120 Weight (lbs) 99.337 kg 99.11 kg Intake: Intake, IV Amount 50 cefTRIAXone 1 gm In 50 Sodium Chloride 0.9% 50 ml @ 100 mls/hr IV [facility] Rx#:[id number] Oral 950 480 Output: Urine 1170 650 Other: # Bowel Movements 1 Weight Source Bedscale Bedscale Active Medications: Current Medications Acetaminophen (Tylenol Extra Strength) 500 mg PO Q4H PRN PRN Reason: Fever > 101 Stop: 12/14/17 18:29 Last Admin: 10/16/17 03:15 Dose: 500 mg Diltiazem HCl (Cardizem) 60 mg PO Q6HR [facility] Stop: 12/15/17 11:59 Last Admin: 10/17/17 05:48 Dose: 60 mg Divalproex Sodium (Depakote Dr) 125 mg PO BID [facility]; Protocol Stop: 12/14/17 08:59 Last Admin: 10/17/17 08:12 Dose: 125 mg Haloperidol Lactate (Haldol) 5 mg IM Q4H PRN; Protocol PRN Reason: Agitation Stop: 12/13/17 18:43 Last Admin: 10/16/17 21:06 Dose: 5 mg Ceftriaxone Sodium 1 gm/ (Sodium Chloride) 50 mls @ 100 mls/hr IV [facility] Stop: 12/13/17 20:59 Last Infusion: 10/16/17 21:01 Dose: Infused Lorazepam (Ativan) 1 mg PO Q4HR PRN; Protocol PRN Reason: Agitation Stop: 12/13/17 18:34 Last Admin: 10/16/17 20:24 Dose: 1 mg Multivitamins/Vitamin C (Theragran) 1 tab PO DAILY [facility] Stop: 12/14/17 08:59 Last Admin: 10/17/17 08:12 Dose: 1 tab Oxybutynin Chloride (Ditropan) 5 mg PO BID [facility] Stop: 10/17/17 16:59 Last Admin: 10/17/17 08:12 Dose: 5 mg Quetiapine Fumarate (Seroquel) 50 mg PO BID [facility]; Protocol Stop: 12/14/17 08:59 Last Admin: 10/17/17 08:12 Dose: 50 mg Quetiapine Fumarate (Seroquel) 50 mg PO HS [facility]; Protocol Stop: 12/15/17 20:59 Last Admin: 10/16/17 20:24 Dose: 50 mg Rivaroxaban (Xarelto) 10 mg PO DAILY [facility] Stop: 12/14/17 08:59 Last Admin: 10/17/17 08:12 Dose: 10 mg Tamsulosin HCl (Flomax) 0.4 mg PO DAILY [facility] Stop: 12/14/17 08:59 Last Admin: 10/17/17 08:12 Dose: 0.4 mg Trazodone HCl (Desyrel) 50 mg PO HS [facility]; Protocol Stop: 12/13/17 20:59 Last Admin: 10/16/17 20:24 Dose: 50 mg Zolpidem Tartrate (Ambien) 5 mg PO HS PRN PRN Reason: Insomnia Stop: 12/13/17 18:43 Last Admin: 10/16/17 03:15 Dose: 5 mg General: no acute distress, well developed, well nourished HEENT: atraumatic, normocephalic, PERRLA, EOMI Neck: supple, no thyromegaly Cardiovascular: S1S2, regular Lungs: clear to auscultation bilaterally, clear to percussion Abdomen: soft, no tender, no distended Extremities: no cyanosis, no clubbing Neurological: awake, alert, oriented Skin: intact - Procedures Procedures: Procedures Procedure Code Date CONTROL BLEEDING IN GENITOURINARY TRACT, ENDO [id number] 10/14/17 Infectious Disease Assmt/Plan - Assessment Assessment: 1. Leukocytosis and fever may be due to sepsis versus systemic inflammatory response syndrome due to hematuria. 2. Urinary tract infection versus hematuria secondary to coagulopathy. 3. History of obstructive uropathy. 4. Chronic atrial fibrillation. 5. Dementia. 6. Psych disorder. - Plan Plan: Continue Rocephin Nutritional Asmnt/Malnutr-PDOC - Dietary Evaluation Malnutrition Findings (Please click <Entered> for more info): Nutritional Asmnt/Malnutrition Start: 10/17/17 10: 32 Text: Status: Complete Freq: Protocol: Document 10/17/17 10:33 PEPPER (Rec: 10/17/17 10:37 PEPPER JUSTICE [email or web address]) Nutritional Asmnt/Malnutrition Patient General Information Diagnosis complicated UTI Pertinent Medical Hx/Surgical Hx chronic A-Fib, obstructive UTI , BPH Subjective Information Pt asleep at time of visiti Current Diet Order/ Nutrition Support mechanical soft chopped diet Pertinent Medications theragran Pertinent Labs 10/16: Na 137, K 4.0, Cl 104, CO2 28.4, BUN 15, Cr 1.0, Ca 8 .6, glucose 100 Nutritional Hx/Data Height 1.93 m Height (Calculated Centimeters) 193.0 Current Weight (lbs) 97.522 kg Weight (Calculated Kilograms) 97.5 Weight (Calculated Grams) 31803.4 Body Mass Index (BMI) 26.2 Weight Status Overweight GI Symptoms GI Symptoms None Last BM 10/16 Cultural/Ethnic/Jew Belief unknown Usual diet at home mechanical soft Skin Integrity/Comment: jose alfredo score 15 Current %PO Good (75-100%) Estimated Nutritional Goals BEE in Kcals: Using Current wt Calories/Kcals/Kg 25-30kcals/kg Kcals Calculated 2450-2940kcals/day Protein: Using Current wt Protein g/k-1.2g/kg Protein Calculated 98-118g/day Fluid: ml 2450-2940ml/day (1ml/kcal) Nutritional Problem 1. Problem Problem No nutrition diagnosis at this time Intervention/Recommendation Comments Recommend continuing mechanical soft chopped diet Expected Outcomes/Goals Expected Outcomes/Goals PO intake >75% of meals
[2017-10-17] MEDS: Haloperidol Lactate 5 mg/mL 1mL Vial IM PRN (18:40)
--- NOTE | 2017-10-17 19:44 | Cardiology ---
10/16/2017 ECHOCARDIOGRAM REPORT The patient of Dr. Figueroa. M-MODE ECHOCARDIOGRAM: Mitral valve, anterior leaflet of mitral valve showed normal excursion. Left ventricular posterior wall showed normal thickness and normal excursion. Interventricular septum showed normal thickness, normal excursion. Ejection fraction 50%. Left atrium enlarged 4.6 cm. Aortic root showed normal dimension, normal excursion of aortic leaflets. CONCLUSION: Hypertrophy of the left ventricle, ejection fraction 46%, left atrial enlargement. 2D ECHO ON THE SAME PATIENT: Long axis view showed normal sized left ventricle with hypertrophy of the left ventricle. Left atrium enlarged. Aortic root showed normal dimension, normal excursion of aortic leaflets. Short axis view of mitral valve normal. Short axis view of aortic valve normal. Apical four chamber view showed normal-sized left ventricle with hypertrophy of the left ventricle. Left atrium enlarged. Right ventricular cavity, normal. Right atrial enlargement. CONCLUSION: Left atrial enlargement, right atrial enlargement, hypertrophy of the left ventricle, ejection fraction 50%. Doppler study shows moderate mitral regurgitation, moderate tricuspid regurgitation, right ventricular systolic pressure 27 mmHg. [facility]# [id number]
[2017-10-17] MEDS: cefTRIAXone 1 GM in Sodium Chloride 0.9% 50 ML IV SCH (20:24)
--- NOTE | 2017-10-17 22:02 | General Progress Note ---
Subjective - Review of Systems Service Date: 10/17/17 Subjective: Patient doing better afebrile no new concern reported Objective - Results Result Diagrams: 10/16/17 07:40 10/17/17 04:45 Recent Labs: Laboratory Last Values WBC 7.5 Th/cmm (4.8-10.8) 10/16/17 07:40 RBC 4.57 Mil/cmm (3.80-5.80) 10/16/17 07:40 Hgb 14.2 gm/dL (12-16) 10/16/17 07:40 Hct 41.3 % (41.0-60) 10/16/17 07:40 MCV 90.4 fl (80-99) 10/16/17 07:40 MCH 31.0 pg (27.0-31.0) 10/16/17 07:40 MCHC Differential 34.3 pg (28.0-36.0) 10/16/17 07:40 RDW 13.6 % (11.5-20.0) 10/16/17 07:40 Plt Count 197 Th/cmm (150-400) 10/16/17 07:40 MPV 8.4 fl 10/16/17 07:40 Add Manual Diff YES 10/16/17 07:40 Band Neutrophils % 1 % (0-10) 10/16/17 07:40 Neutrophils (Manual) 82 % (40-80) H 10/16/17 07:40 Lymphocytes 7 % (20-50) L 10/16/17 07:40 Monocytes 10 % (2-10) 10/16/17 07:40 Eosinophils 0 % (0-5) 10/16/17 07:40 Basophils 0 % (0-3) 10/16/17 07:40 Platelet Estimate ADEQUATE (NORMAL) 10/15/17 04:55 PT 11.4 SECONDS (9.5-11.5) 10/16/17 07:40 INR 1.11 (0.5-1.4) 10/16/17 07:40 PTT (Actin FS) 29.4 SECONDS (26.0-38.0) 10/16/17 07:40 Sodium 137 mEq/L (136-145) 10/17/17 04:45 Potassium 4.0 mEq/L (3.5-5.1) 10/17/17 04:45 Chloride 104 mEq/L (98-107) 10/17/17 04:45 Carbon Dioxide 28.4 mEq/L (21.0-31.0) 10/17/17 04:45 Anion Gap 8.6 (7.0-16.0) 10/17/17 04:45 BUN 15 mg/dL (7-25) 10/17/17 04:45 Creatinine 1.0 mg/dL (0.7-1.3) 10/17/17 04:45 Est GFR ( Amer) TNP 10/17/17 04:45 Est GFR (Non-Af Amer) TNP 10/17/17 04:45 BUN/Creatinine Ratio 15.0 10/17/17 04:45 Glucose 100 mg/dL (70-105) 10/17/17 04:45 POC Glucose 81 MG/DL (70 - 105) 10/15/17 10:36 Calcium 8.6 mg/dL (8.6-10.3) 10/17/17 04:45 Total Bilirubin 0.5 mg/dL (0.3-1.0) 10/16/17 07:40 AST 43 U/L (13-39) H 10/16/17 07:40 ALT 18 U/L (7-52) 10/16/17 07:40 Alkaline Phosphatase 47 U/L (34-104) 10/16/17 07:40 B-Natriuretic Peptide 219.0 pg/mL (5.0-100.0) H 10/17/17 04:45 Total Protein 5.6 gm/dL (6.0-8.3) L 10/16/17 07:40 Albumin 3.1 gm/dL (4.2-5.5) L 10/16/17 07:40 Globulin 2.5 gm/dL 10/16/17 07:40 Albumin/Globulin Ratio 1.2 (1.0-1.8) 10/16/17 07:40 - Physical Exam Vitals and I&O: Vital Signs Temp 100.5 F 10/17/17 20:00 Pulse 105 10/17/17 20:00 Resp 23 10/17/17 20:00 BP 117/60 10/17/17 20:00 Pulse Ox 96 10/17/17 20:00 Intake & Output 10/17/17 10/17/1718 06:59 18:59 06:59 Intake Total 530 700 Output Total 650 1350 Balance -120 -650 Weight (lbs) 99.11 kg 85.729 kg Intake: Intake, IV Amount 50 cefTRIAXone 1 gm In 50 Sodium Chloride 0.9% 50 ml @ 100 mls/hr IV [facility] Rx#:[id number] Oral 480 700 Output: Urine 650 1350 Other: Weight Source Bedscale Bedscale Active Medications: Current Medications Acetaminophen (Tylenol Extra Strength) 500 mg PO Q4H PRN PRN Reason: Fever > 101 Stop: 12/14/17 18:29 Last Admin: 10/16/17 03:15 Dose: 500 mg Diltiazem HCl (Cardizem) 60 mg PO Q6HR [facility] Stop: 12/15/17 11:59 Last Admin: 10/17/17 17:40 Dose: 60 mg Divalproex Sodium (Depakote Dr) 125 mg PO BID [facility]; Protocol Stop: 12/14/17 08:59 Last Admin: 10/17/17 16:35 Dose: 125 mg Haloperidol Lactate (Haldol) 5 mg IM Q4H PRN; Protocol PRN Reason: Agitation Stop: 12/13/17 18:43 Last Admin: 10/17/17 18:40 Dose: 5 mg Ceftriaxone Sodium 1 gm/ (Sodium Chloride) 50 mls @ 100 mls/hr IV [facility] Stop: 12/13/17 20:59 Last Admin: 10/17/17 20:24 Dose: 100 mls/hr Lorazepam (Ativan) 1 mg PO Q4HR PRN; Protocol PRN Reason: Agitation Stop: 12/13/17 18:34 Last Admin: 10/17/17 16:35 Dose: 1 mg Multivitamins/Vitamin C (Theragran) 1 tab PO DAILY [facility] Stop: 12/14/17 08:59 Last Admin: 10/17/17 08:12 Dose: 1 tab Quetiapine Fumarate (Seroquel) 50 mg PO BID [facility]; Protocol Stop: 12/14/17 08:59 Last Admin: 10/17/17 16:35 Dose: 50 mg Quetiapine Fumarate (Seroquel) 50 mg PO HS [facility]; Protocol Stop: 12/15/17 20:59 Last Admin: 10/17/17 20:24 Dose: 50 mg Rivaroxaban (Xarelto) 10 mg PO DAILY [facility] Stop: 12/14/17 08:59 Last Admin: 10/17/17 08:12 Dose: 10 mg Tamsulosin HCl (Flomax) 0.4 mg PO DAILY [facility] Stop: 12/14/17 08:59 Last Admin: 10/17/17 08:12 Dose: 0.4 mg Trazodone HCl (Desyrel) 50 mg PO HS [facility]; Protocol Stop: 12/13/17 20:59 Last Admin: 10/17/17 20:24 Dose: 50 mg Zolpidem Tartrate (Ambien) 5 mg PO HS PRN PRN Reason: Insomnia Stop: 12/13/17 18:43 Last Admin: 10/16/17 03:15 Dose: 5 mg Cardiovascular: Regular rate Lungs: Clear to auscultation - Procedures Procedures: Procedures Procedure Code Date CONTROL BLEEDING IN GENITOURINARY TRACT, ENDO [id number] 10/14/17 Assessment/Plan - Assessment Assessment: Complicated UTI Hematuria BPH Afib with RVR Dementia Mental health disorder - Plan Plan: HR better Cardiezem IV Rocephine Urine cx so far no growth ID Cardio and Psych on board Plan of care discussed with nursing staff Nutritional Asmnt/Malnutr-PDOC - Dietary Evaluation Malnutrition Findings (Please click <Entered> for more info): Nutritional Asmnt/Malnutrition Start: 10/17/17 10: 32 Text: Status: Complete Freq: Protocol: Document 10/17/17 10:33 PEPPER (Rec: 10/17/17 10:37 PEPPER CAMPBELL- [email or web address]) Nutritional Asmnt/Malnutrition Patient General Information Diagnosis complicated UTI Pertinent Medical Hx/Surgical Hx chronic A-Fib, obstructive UTI , BPH Subjective Information Pt asleep at time of visiti Current Diet Order/ Nutrition Support mechanical soft chopped diet Pertinent Medications theragran Pertinent Labs 10/16: Na 137, K 4.0, Cl 104, CO2 28.4, BUN 15, Cr 1.0, Ca 8 .6, glucose 100 Nutritional Hx/Data Height 1.93 m Height (Calculated Centimeters) 193.0 Current Weight (lbs) 97.522 kg Weight (Calculated Kilograms) 97.5 Weight (Calculated Grams) 26656.4 Body Mass Index (BMI) 26.2 Weight Status Overweight GI Symptoms GI Symptoms None Last BM 10/16 Cultural/Ethnic/Quaker Belief unknown Usual diet at home mechanical soft Skin Integrity/Comment: jose alfredo score 15 Current %PO Good (75-100%) Estimated Nutritional Goals BEE in Kcals: Using Current wt Calories/Kcals/Kg 25-30kcals/kg Kcals Calculated 2450-2940kcals/day Protein: Using Current wt Protein g/k-1.2g/kg Protein Calculated 98-118g/day Fluid: ml 2450-2940ml/day (1ml/kcal) Nutritional Problem 1. Problem Problem No nutrition diagnosis at this time Intervention/Recommendation Comments Recommend continuing mechanical soft chopped diet Expected Outcomes/Goals Expected Outcomes/Goals PO intake >75% of meals
[2017-10-17] MEDS: Acetaminophen 500 MG TAB PO PRN (23:43)
[2017-10-18] MEDS: Diltiazem 30 mg Tab PO SCH ×3 (06:09→17:58)
[2017-10-18] MEDS: Multivitamin Tab PO SCH (08:55)
--- NOTE | 2017-10-18 14:42 | Infectious Disease Prog Note ---
Infectious Disease Subjective - Review of Systems Service Date: 10/18/17 Subjective: There is no fever. Infectious Disease Objective - Results Result Diagrams: 10/16/17 07:40 10/17/17 04:45 Recent Labs: Laboratory Last Values WBC 7.5 Th/cmm (4.8-10.8) 10/16/17 07:40 RBC 4.57 Mil/cmm (3.80-5.80) 10/16/17 07:40 Hgb 14.2 gm/dL (12-16) 10/16/17 07:40 Hct 41.3 % (41.0-60) 10/16/17 07:40 MCV 90.4 fl (80-99) 10/16/17 07:40 MCH 31.0 pg (27.0-31.0) 10/16/17 07:40 MCHC Differential 34.3 pg (28.0-36.0) 10/16/17 07:40 RDW 13.6 % (11.5-20.0) 10/16/17 07:40 Plt Count 197 Th/cmm (150-400) 10/16/17 07:40 MPV 8.4 fl 10/16/17 07:40 Add Manual Diff YES 10/16/17 07:40 Band Neutrophils % 1 % (0-10) 10/16/17 07:40 Neutrophils (Manual) 82 % (40-80) H 10/16/17 07:40 Lymphocytes 7 % (20-50) L 10/16/17 07:40 Monocytes 10 % (2-10) 10/16/17 07:40 Eosinophils 0 % (0-5) 10/16/17 07:40 Basophils 0 % (0-3) 10/16/17 07:40 Platelet Estimate ADEQUATE (NORMAL) 10/15/17 04:55 PT 11.4 SECONDS (9.5-11.5) 10/16/17 07:40 INR 1.11 (0.5-1.4) 10/16/17 07:40 PTT (Actin FS) 29.4 SECONDS (26.0-38.0) 10/16/17 07:40 Sodium 137 mEq/L (136-145) 10/17/17 04:45 Potassium 4.0 mEq/L (3.5-5.1) 10/17/17 04:45 Chloride 104 mEq/L (98-107) 10/17/17 04:45 Carbon Dioxide 28.4 mEq/L (21.0-31.0) 10/17/17 04:45 Anion Gap 8.6 (7.0-16.0) 10/17/17 04:45 BUN 15 mg/dL (7-25) 10/17/17 04:45 Creatinine 1.0 mg/dL (0.7-1.3) 10/17/17 04:45 Est GFR ( Amer) TNP 10/17/17 04:45 Est GFR (Non-Af Amer) TNP 10/17/17 04:45 BUN/Creatinine Ratio 15.0 10/17/17 04:45 Glucose 100 mg/dL (70-105) 10/17/17 04:45 POC Glucose 81 MG/DL (70 - 105) 10/15/17 10:36 Calcium 8.6 mg/dL (8.6-10.3) 10/17/17 04:45 Total Bilirubin 0.5 mg/dL (0.3-1.0) 10/16/17 07:40 AST 43 U/L (13-39) H 10/16/17 07:40 ALT 18 U/L (7-52) 10/16/17 07:40 Alkaline Phosphatase 47 U/L (34-104) 10/16/17 07:40 B-Natriuretic Peptide 219.0 pg/mL (5.0-100.0) H 10/17/17 04:45 Total Protein 5.6 gm/dL (6.0-8.3) L 10/16/17 07:40 Albumin 3.1 gm/dL (4.2-5.5) L 10/16/17 07:40 Globulin 2.5 gm/dL 10/16/17 07:40 Albumin/Globulin Ratio 1.2 (1.0-1.8) 10/16/17 07:40 - Physical Exam Vitals and I&O: Vital Signs Temp 97.9 F 10/18/17 11:23 Pulse 94 10/18/17 13:26 Resp 18 10/18/17 12:07 BP 116/57 10/18/17 11:23 Pulse Ox 99 10/18/17 11:23 Intake & Output 10/17/17 10/18/17 10/18/17 18:59 06:59 18:59 Intake Total 700 350 Output Total 1350 1750 Balance -650 -1400 Weight (lbs) 85.729 kg 85.729 kg Intake: Intake, IV Amount 50 cefTRIAXone 1 gm In 50 Sodium Chloride 0.9% 50 ml @ 100 mls/hr IV HS [facility] Rx#:[id number] Oral 700 300 Output: Urine 1350 1750 Other: # Bowel Movements 0 Weight Source Bedscale Bedscale Active Medications: Current Medications Acetaminophen (Tylenol Extra Strength) 500 mg PO Q4H PRN PRN Reason: Fever > 101 Stop: 12/14/17 18:29 Last Admin: 10/17/17 23:43 Dose: 500 mg Diltiazem HCl (Cardizem) 60 mg PO Q6HR [facility] Stop: 12/15/17 11:59 Last Admin: 10/18/17 13:26 Dose: 60 mg Haloperidol Lactate (Haldol) 5 mg IM Q4H PRN; Protocol PRN Reason: Agitation Stop: 12/13/17 18:43 Last Admin: 10/17/17 18:40 Dose: 5 mg Ceftriaxone Sodium 1 gm/ (Sodium Chloride) 50 mls @ 100 mls/hr IV [facility] Stop: 12/13/17 20:59 Last Infusion: 10/17/17 21:00 Dose: Infused Lorazepam (Ativan) 1 mg PO Q4HR PRN; Protocol PRN Reason: Agitation Stop: 12/13/17 18:34 Last Admin: 10/17/17 16:35 Dose: 1 mg Multivitamins/Vitamin C (Theragran) 1 tab PO DAILY [facility] Stop: 12/14/17 08:59 Last Admin: 10/18/17 08:55 Dose: 1 tab Quetiapine Fumarate (Seroquel) 50 mg PO BID [facility]; Protocol Stop: 12/14/17 08:59 Last Admin: 10/18/17 08:55 Dose: 50 mg Quetiapine Fumarate (Seroquel) 50 mg PO HS [facility]; Protocol Stop: 12/15/17 20:59 Last Admin: 10/17/17 20:24 Dose: 50 mg Rivaroxaban (Xarelto) 10 mg PO DAILY [facility] Stop: 12/14/17 08:59 Last Admin: 10/18/17 08:55 Dose: 10 mg Tamsulosin HCl (Flomax) 0.4 mg PO DAILY [facility] Stop: 12/14/17 08:59 Last Admin: 10/18/17 08:55 Dose: 0.4 mg Trazodone HCl (Desyrel) 50 mg PO HS [facility]; Protocol Stop: 12/13/17 20:59 Last Admin: 10/17/17 20:24 Dose: 50 mg Valproate Sodium (Depakene) 125 mg GT BID [facility] Stop: 12/17/17 16:59 Zolpidem Tartrate (Ambien) 5 mg PO HS PRN PRN Reason: Insomnia Stop: 12/13/17 18:43 Last Admin: 10/16/17 03:15 Dose: 5 mg General: no acute distress, well developed, well nourished HEENT: atraumatic, normocephalic, PERRLA, EOMI, moist mucous membrane Neck: supple, no thyromegaly Cardiovascular: S1S2, regular Lungs: clear to auscultation bilaterally, clear to percussion Abdomen: soft, no tender, no distended, no mass, no hepatomegaly Extremities: no cyanosis, no clubbing, no edema Neurological: awake, alert, other (confused.) Skin: intact - Procedures Procedures: Procedures Procedure Code Date CONTROL BLEEDING IN GENITOURINARY TRACT, ENDO [id number] 10/14/17 Infectious Disease Assmt/Plan - Assessment Assessment: 1. Leukocytosis and fever may be due to sepsis versus systemic inflammatory response syndrome due to hematuria. 2. Urinary tract infection versus hematuria secondary to coagulopathy. 3. History of obstructive uropathy. 4. Chronic atrial fibrillation. 5. Dementia. 6. Psych disorder. - Plan Plan: Continue Rocephin Nutritional Asmnt/Malnutr-PDOC - Dietary Evaluation Malnutrition Findings (Please click <Entered> for more info): Nutritional Asmnt/Malnutrition Start: 10/17/17 10: 32 Text: Status: Complete Freq: Protocol: Document 10/17/17 10:33 PEPPER (Rec: 10/17/17 10:37 PEPPER CAMPBELL- [email or web address]) Nutritional Asmnt/Malnutrition Patient General Information Diagnosis complicated UTI Pertinent Medical Hx/Surgical Hx chronic A-Fib, obstructive UTI , BPH Subjective Information Pt asleep at time of visiti Current Diet Order/ Nutrition Support mechanical soft chopped diet Pertinent Medications theragran Pertinent Labs 10/16: Na 137, K 4.0, Cl 104, CO2 28.4, BUN 15, Cr 1.0, Ca 8 .6, glucose 100 Nutritional Hx/Data Height 1.93 m Height (Calculated Centimeters) 193.0 Current Weight (lbs) 97.522 kg Weight (Calculated Kilograms) 97.5 Weight (Calculated Grams) 84028.4 Body Mass Index (BMI) 26.2 Weight Status Overweight GI Symptoms GI Symptoms None Last BM 10/16 Cultural/Ethnic/Samaritan Belief unknown Usual diet at home mechanical soft Skin Integrity/Comment: jose alfredo score 15 Current %PO Good (75-100%) Estimated Nutritional Goals BEE in Kcals: Using Current wt Calories/Kcals/Kg 25-30kcals/kg Kcals Calculated 2450-2940kcals/day Protein: Using Current wt Protein g/k-1.2g/kg Protein Calculated 98-118g/day Fluid: ml 2450-2940ml/day (1ml/kcal) Nutritional Problem 1. Problem Problem No nutrition diagnosis at this time Intervention/Recommendation Comments Recommend continuing mechanical soft chopped diet Expected Outcomes/Goals Expected Outcomes/Goals PO intake >75% of meals
--- NOTE | 2017-10-18 20:35 | General Progress Note ---
Subjective - Review of Systems Service Date: 10/18/17 Subjective: Patient doing better afebrile no new concern reported Objective - Results Result Diagrams: 10/16/17 07:40 10/17/17 04:45 Recent Labs: Laboratory Last Values WBC 7.5 Th/cmm (4.8-10.8) 10/16/17 07:40 RBC 4.57 Mil/cmm (3.80-5.80) 10/16/17 07:40 Hgb 14.2 gm/dL (12-16) 10/16/17 07:40 Hct 41.3 % (41.0-60) 10/16/17 07:40 MCV 90.4 fl (80-99) 10/16/17 07:40 MCH 31.0 pg (27.0-31.0) 10/16/17 07:40 MCHC Differential 34.3 pg (28.0-36.0) 10/16/17 07:40 RDW 13.6 % (11.5-20.0) 10/16/17 07:40 Plt Count 197 Th/cmm (150-400) 10/16/17 07:40 MPV 8.4 fl 10/16/17 07:40 Add Manual Diff YES 10/16/17 07:40 Band Neutrophils % 1 % (0-10) 10/16/17 07:40 Neutrophils (Manual) 82 % (40-80) H 10/16/17 07:40 Lymphocytes 7 % (20-50) L 10/16/17 07:40 Monocytes 10 % (2-10) 10/16/17 07:40 Eosinophils 0 % (0-5) 10/16/17 07:40 Basophils 0 % (0-3) 10/16/17 07:40 Platelet Estimate ADEQUATE (NORMAL) 10/15/17 04:55 PT 11.4 SECONDS (9.5-11.5) 10/16/17 07:40 INR 1.11 (0.5-1.4) 10/16/17 07:40 PTT (Actin FS) 29.4 SECONDS (26.0-38.0) 10/16/17 07:40 Sodium 137 mEq/L (136-145) 10/17/17 04:45 Potassium 4.0 mEq/L (3.5-5.1) 10/17/17 04:45 Chloride 104 mEq/L (98-107) 10/17/17 04:45 Carbon Dioxide 28.4 mEq/L (21.0-31.0) 10/17/17 04:45 Anion Gap 8.6 (7.0-16.0) 10/17/17 04:45 BUN 15 mg/dL (7-25) 10/17/17 04:45 Creatinine 1.0 mg/dL (0.7-1.3) 10/17/17 04:45 Est GFR ( Amer) TNP 10/17/17 04:45 Est GFR (Non-Af Amer) TNP 10/17/17 04:45 BUN/Creatinine Ratio 15.0 10/17/17 04:45 Glucose 100 mg/dL (70-105) 10/17/17 04:45 POC Glucose 81 MG/DL (70 - 105) 10/15/17 10:36 Calcium 8.6 mg/dL (8.6-10.3) 10/17/17 04:45 Total Bilirubin 0.5 mg/dL (0.3-1.0) 10/16/17 07:40 AST 43 U/L (13-39) H 10/16/17 07:40 ALT 18 U/L (7-52) 10/16/17 07:40 Alkaline Phosphatase 47 U/L (34-104) 10/16/17 07:40 B-Natriuretic Peptide 219.0 pg/mL (5.0-100.0) H 10/17/17 04:45 Total Protein 5.6 gm/dL (6.0-8.3) L 10/16/17 07:40 Albumin 3.1 gm/dL (4.2-5.5) L 10/16/17 07:40 Globulin 2.5 gm/dL 10/16/17 07:40 Albumin/Globulin Ratio 1.2 (1.0-1.8) 10/16/17 07:40 - Physical Exam Vitals and I&O: Vital Signs Temp 98.2 F 10/18/17 15:00 Pulse 93 10/18/17 17:58 Resp 18 10/18/17 16:00 BP 124/72 10/18/17 15:00 Pulse Ox 98 10/18/17 15:00 Intake & Output 10/18/17 10/18/1718 06:59 18:59 06:59 Intake Total 350 550 Output Total 1750 1200 Balance -1400 -650 Weight (lbs) 85.729 kg 85.729 kg Intake: Intake, IV Amount 50 cefTRIAXone 1 gm In 50 Sodium Chloride 0.9% 50 ml @ 100 mls/hr IV HS [facility] Rx#:[id number] Oral 300 550 Output: Urine 1750 1200 Other: # Bowel Movements 0 1 Weight Source Bedscale Estimated Active Medications: Current Medications Acetaminophen (Tylenol Extra Strength) 500 mg PO Q4H PRN PRN Reason: Fever > 101 Stop: 12/14/17 18:29 Last Admin: 10/17/17 23:43 Dose: 500 mg Diltiazem HCl (Cardizem) 60 mg PO Q6HR [facility] Stop: 12/15/17 11:59 Last Admin: 10/18/17 17:58 Dose: 60 mg Haloperidol Lactate (Haldol) 5 mg IM Q4H PRN; Protocol PRN Reason: Agitation Stop: 12/13/17 18:43 Last Admin: 10/17/17 18:40 Dose: 5 mg Ceftriaxone Sodium 1 gm/ (Sodium Chloride) 50 mls @ 100 mls/hr IV [facility] Stop: 12/13/17 20:59 Last Infusion: 10/17/17 21:00 Dose: Infused Lorazepam (Ativan) 1 mg PO Q4HR PRN; Protocol PRN Reason: Agitation Stop: 12/13/17 18:34 Last Admin: 10/17/17 16:35 Dose: 1 mg Multivitamins/Vitamin C (Theragran) 1 tab PO DAILY [facility] Stop: 12/14/17 08:59 Last Admin: 10/18/17 08:55 Dose: 1 tab Quetiapine Fumarate (Seroquel) 50 mg PO BID [facility]; Protocol Stop: 12/14/17 08:59 Last Admin: 10/18/17 17:58 Dose: 50 mg Quetiapine Fumarate (Seroquel) 50 mg PO HS [facility]; Protocol Stop: 12/15/17 20:59 Last Admin: 10/17/17 20:24 Dose: 50 mg Rivaroxaban (Xarelto) 10 mg PO DAILY [facility] Stop: 12/14/17 08:59 Last Admin: 10/18/17 08:55 Dose: 10 mg Tamsulosin HCl (Flomax) 0.4 mg PO DAILY [facility] Stop: 12/14/17 08:59 Last Admin: 10/18/17 08:55 Dose: 0.4 mg Trazodone HCl (Desyrel) 50 mg PO HS [facility]; Protocol Stop: 12/13/17 20:59 Last Admin: 10/17/17 20:24 Dose: 50 mg Valproate Sodium (Depakene) 125 mg GT BID [facility] Stop: 12/17/17 16:59 Last Admin: 10/18/17 17:57 Dose: 125 mg Zolpidem Tartrate (Ambien) 5 mg PO HS PRN PRN Reason: Insomnia Stop: 12/13/17 18:43 Last Admin: 10/16/17 03:15 Dose: 5 mg Cardiovascular: Regular rate Lungs: Clear to auscultation Abdomen: Soft, no Tender - Procedures Procedures: Procedures Procedure Code Date CONTROL BLEEDING IN GENITOURINARY TRACT, ENDO [id number] 10/14/17 Assessment/Plan - Assessment Assessment: Complicated UTI Hematuria BPH Afib with RVR Dementia Mental health disorder - Plan Plan: HR better Cardiezem IV Rocephine Urine cx so far no growth ID Cardio and Psych on board Plan of care discussed with nursing staff Nutritional Asmnt/Malnutr-PDOC - Dietary Evaluation Malnutrition Findings (Please click <Entered> for more info): Nutritional Asmnt/Malnutrition Start: 10/17/17 10: 32 Text: Status: Complete Freq: Protocol: Document 10/17/17 10:33 PEPPER (Rec: 10/17/17 10:37 PEPPER CAMPBELL- [email or web address]) Nutritional Asmnt/Malnutrition Patient General Information Diagnosis complicated UTI Pertinent Medical Hx/Surgical Hx chronic A-Fib, obstructive UTI , BPH Subjective Information Pt asleep at time of visiti Current Diet Order/ Nutrition Support mechanical soft chopped diet Pertinent Medications theragran Pertinent Labs 10/16: Na 137, K 4.0, Cl 104, CO2 28.4, BUN 15, Cr 1.0, Ca 8 .6, glucose 100 Nutritional Hx/Data Height 1.93 m Height (Calculated Centimeters) 193.0 Current Weight (lbs) 97.522 kg Weight (Calculated Kilograms) 97.5 Weight (Calculated Grams) 28355.4 Body Mass Index (BMI) 26.2 Weight Status Overweight GI Symptoms GI Symptoms None Last BM 10/16 Cultural/Ethnic/Samaritan Belief unknown Usual diet at home mechanical soft Skin Integrity/Comment: jose alfredo score 15 Current %PO Good (75-100%) Estimated Nutritional Goals BEE in Kcals: Using Current wt Calories/Kcals/Kg 25-30kcals/kg Kcals Calculated 2450-2940kcals/day Protein: Using Current wt Protein g/k-1.2g/kg Protein Calculated 98-118g/day Fluid: ml 2450-2940ml/day (1ml/kcal) Nutritional Problem 1. Problem Problem No nutrition diagnosis at this time Intervention/Recommendation Comments Recommend continuing mechanical soft chopped diet Expected Outcomes/Goals Expected Outcomes/Goals PO intake >75% of meals
[2017-10-18] MEDS: cefTRIAXone 1 GM in Sodium Chloride 0.9% 50 ML IV SCH (21:21)
[2017-10-19] MEDS: Diltiazem 30 mg Tab PO SCH ×4 (00:31→17:48)
[2017-10-19] MEDS: Multivitamin Tab PO SCH (08:31)
[2017-10-19] MEDS ORDERED: Probiotic Screen MC PRN (09:24)
[2017-10-19] MEDS ORDERED: Lactobacillus Rhamnosus GG 15 Billion CFU CAP.SPRINK PO SCH (14:00)
--- NOTE | 2017-10-19 21:02 | General Progress Note ---
Subjective - Review of Systems Service Date: 10/19/17 Subjective: Patient doing better denied any complaints Objective - Results Result Diagrams: 10/16/17 07:40 10/17/17 04:45 Recent Labs: Laboratory Last Values WBC 7.5 Th/cmm (4.8-10.8) 10/16/17 07:40 RBC 4.57 Mil/cmm (3.80-5.80) 10/16/17 07:40 Hgb 14.2 gm/dL (12-16) 10/16/17 07:40 Hct 41.3 % (41.0-60) 10/16/17 07:40 MCV 90.4 fl (80-99) 10/16/17 07:40 MCH 31.0 pg (27.0-31.0) 10/16/17 07:40 MCHC Differential 34.3 pg (28.0-36.0) 10/16/17 07:40 RDW 13.6 % (11.5-20.0) 10/16/17 07:40 Plt Count 197 Th/cmm (150-400) 10/16/17 07:40 MPV 8.4 fl 10/16/17 07:40 Add Manual Diff YES 10/16/17 07:40 Band Neutrophils % 1 % (0-10) 10/16/17 07:40 Neutrophils (Manual) 82 % (40-80) H 10/16/17 07:40 Lymphocytes 7 % (20-50) L 10/16/17 07:40 Monocytes 10 % (2-10) 10/16/17 07:40 Eosinophils 0 % (0-5) 10/16/17 07:40 Basophils 0 % (0-3) 10/16/17 07:40 Platelet Estimate ADEQUATE (NORMAL) 10/15/17 04:55 PT 11.4 SECONDS (9.5-11.5) 10/16/17 07:40 INR 1.11 (0.5-1.4) 10/16/17 07:40 PTT (Actin FS) 29.4 SECONDS (26.0-38.0) 10/16/17 07:40 Sodium 137 mEq/L (136-145) 10/17/17 04:45 Potassium 4.0 mEq/L (3.5-5.1) 10/17/17 04:45 Chloride 104 mEq/L (98-107) 10/17/17 04:45 Carbon Dioxide 28.4 mEq/L (21.0-31.0) 10/17/17 04:45 Anion Gap 8.6 (7.0-16.0) 10/17/17 04:45 BUN 15 mg/dL (7-25) 10/17/17 04:45 Creatinine 1.0 mg/dL (0.7-1.3) 10/17/17 04:45 Est GFR ( Amer) TNP 10/17/17 04:45 Est GFR (Non-Af Amer) TNP 10/17/17 04:45 BUN/Creatinine Ratio 15.0 10/17/17 04:45 Glucose 100 mg/dL (70-105) 10/17/17 04:45 POC Glucose 81 MG/DL (70 - 105) 10/15/17 10:36 Calcium 8.6 mg/dL (8.6-10.3) 10/17/17 04:45 Total Bilirubin 0.5 mg/dL (0.3-1.0) 10/16/17 07:40 AST 43 U/L (13-39) H 10/16/17 07:40 ALT 18 U/L (7-52) 10/16/17 07:40 Alkaline Phosphatase 47 U/L (34-104) 10/16/17 07:40 B-Natriuretic Peptide 219.0 pg/mL (5.0-100.0) H 10/17/17 04:45 Total Protein 5.6 gm/dL (6.0-8.3) L 10/16/17 07:40 Albumin 3.1 gm/dL (4.2-5.5) L 10/16/17 07:40 Globulin 2.5 gm/dL 10/16/17 07:40 Albumin/Globulin Ratio 1.2 (1.0-1.8) 10/16/17 07:40 - Physical Exam Vitals and I&O: Vital Signs Temp 96.4 F 10/19/17 19:00 Pulse 48 10/19/17 19:00 Resp 18 10/19/17 19:00 BP 90/57 10/19/17 19:00 Pulse Ox 97 10/19/17 18:52 Intake & Output 10/19/17 10/19/17 10/20/17 06:59 18:59 06:59 Intake Total 200 1200 80 Output Total 650 100 Balance -450 1200 -20 Weight (lbs) 85.729 kg 95.481 kg 95.254 kg Intake: Oral 200 1200 80 Output: Urine 650 100 Other: # Voids 600 # Bowel Movements 0 Stool Characteristics Soft Brown Weight Source Bedscale Bedscale Bedscale Lungs: Clear to auscultation Abdomen: Soft, no Tender - Procedures Procedures: Procedures Procedure Code Date CONTROL BLEEDING IN GENITOURINARY TRACT, ENDO [id number] 10/14/17 Assessment/Plan - Assessment Assessment: Complicated UTI Hematuria BPH Afib with RVR Dementia Mental health disorder - Plan Plan: DC back to [facility] today DC plan discussed with nursing staff TENISHA rocephimaria a Out patient UROLOGY follow up advised Nutritional Asmnt/Malnutr-PDOC - Dietary Evaluation Malnutrition Findings (Please click <Entered> for more info): Nutritional Asmnt/Malnutrition Start: 10/17/17 10: 32 Text: Status: Complete Freq: Protocol: Document 10/17/17 10:33 PEPPER (Rec: 10/17/17 10:37 PEPPER ADRIAN- [email or web address]) Nutritional Asmnt/Malnutrition Patient General Information Diagnosis complicated UTI Pertinent Medical Hx/Surgical Hx chronic A-Fib, obstructive UTI , BPH Subjective Information Pt asleep at time of visiti Current Diet Order/ Nutrition Support mechanical soft chopped diet Pertinent Medications theragran Pertinent Labs 10/16: Na 137, K 4.0, Cl 104, CO2 28.4, BUN 15, Cr 1.0, Ca 8 .6, glucose 100 Nutritional Hx/Data Height 1.93 m Height (Calculated Centimeters) 193.0 Current Weight (lbs) 97.522 kg Weight (Calculated Kilograms) 97.5 Weight (Calculated Grams) 67569.4 Body Mass Index (BMI) 26.2 Weight Status Overweight GI Symptoms GI Symptoms None Last BM 10/16 Cultural/Ethnic/Jewish Belief unknown Usual diet at home mechanical soft Skin Integrity/Comment: jose alfredo score 15 Current %PO Good (75-100%) Estimated Nutritional Goals BEE in Kcals: Using Current wt Calories/Kcals/Kg 25-30kcals/kg Kcals Calculated 2450-2940kcals/day Protein: Using Current wt Protein g/k-1.2g/kg Protein Calculated 98-118g/day Fluid: ml 2450-2940ml/day (1ml/kcal) Nutritional Problem 1. Problem Problem No nutrition diagnosis at this time Intervention/Recommendation Comments Recommend continuing mechanical soft chopped diet Expected Outcomes/Goals Expected Outcomes/Goals PO intake >75% of meals
--- NOTE | 2017-10-23 21:42 | Progress Notes ---
DATE: 10/17/2017 SUBJECTIVE: Chart reviewed and the patient interviewed. Also, discussed the patient's condition with the staff and reviewed records and labs. The patient still has episodes of agitation, but seems to be less than before. Also, is interacting in a confused state. The patient also still needs close monitoring. Otherwise, no side effects of medications. We will continue monitoring his behavior and continue to follow up. JOB# [id number]
== END 2017-10-19 20:15 | DRG 666 ==
LOC: MSI 17:47 → TELE 18:38 → ICU 10-15 20:23 → MSI 10-18 01:00 → TELE 10-18 02:17
PROVIDERS: ADMIT Family Medicine; ATTEND Family Medicine
PROC: 0V508ZZ Destruction of Prostate, Via Natural or Artificial Opening Endoscopic (ICD-10-PCS; principal; 2017-10-15)
PROC: 0TCB8ZZ Extirpation of Matter from Bladder, Via Natural or Artificial Opening Endoscopic (ICD-10-PCS; 2017-10-15)
DX: N39.0 Urinary tract infection, site not specified (principal); E44.1 Mild protein-calorie malnutrition; R31.0 Gross hematuria; N40.1 Benign prostatic hyperplasia with lower urinary tract symptoms; N13.8 Other obstructive and reflux uropathy; I48.2 Chronic atrial fibrillation; F03.90 Unspecified dementia, unspecified severity, without behavioral disturbance, psychotic disturbance, mood disturbance, and anxiety; F29 Unspecified psychosis not due to a substance or known physiological condition; R33.8 Other retention of urine; E86.0 Dehydration; Z68.25 Body mass index [BMI] 25.0-25.9, adult; Z79.01 Long term (current) use of anticoagulants
CPT/HCPCS: 36415-UA; 80048-TC; 80053-TC; 82948-90; 83880-TC; 85007-TC; 85025-TC; 85610-TC; 87086-90; 90799; 93005; A4217; J0696; J1630; J2704; J3010; J7040; V2790; X6258; Z7610